=== PATIENT | female | born 1965 | race Caucasian/White ===

== ENCOUNTER 2016-10-19 17:04 | Emergency (ER) | payer MEDICARE ==
[~2016-10-19] VITALS: Ht 175.3 cm; Wt 67.3 kg
[2016-10-19] MEDS ORDERED: LEVOFLOXACIN 750 MG TABLET ONE (19:00)
[2016-10-19] MEDS ORDERED: LEVOFLOXACIN 750 MG TABLET PO ONE (19:00)
[2016-10-19] MEDS ORDERED: TRIAVIL PO (19:07)
[2016-10-19] MEDS ORDERED: [UNRECOGNIZED DRUG - OTHER] PO (19:07)
[2016-10-19 19:17] VITALS: BP 162/91
[2016-10-19] MEDS ORDERED: PLEASE ENTER ALLERGIES MC SCH ×2 (19:30)
== END 2016-10-19 19:20 | disposition home or self-care (01) ==
LOC: ED 19:00
DX: J15.9 Unspecified bacterial pneumonia (principal); J44.0 Chronic obstructive pulmonary disease with (acute) lower respiratory infection
CPT/HCPCS: 71020; 99284

== ENCOUNTER 2018-10-20 14:24 | Emergency (ER) | payer MEDICAID, MEDICARE ==
[~2018-10-20] VITALS: Ht 170.2 cm; Wt 68.4 kg
[~2018-10-20 14:24] MED LIST: TRIAVIL PO; [UNRECOGNIZED DRUG - OTHER] PO
[2018-10-20 14:27] VITALS: BP 110/74
--- NOTE | 2018-10-20 14:42 | NUR ---
PT STATES "I AM LEAKING SPINAL FLUID OUT OF MY MOUTH" PT WANTS [facility] W EMERGENCY PLACEMENT W HOUSING AND STATE SHE IS NEED OF HELP. MD AT BEDSIDE.
[2018-10-20] MEDS ORDERED: SERT50TA PO (14:49)
[2018-10-20] MEDS ORDERED: PERP2TAB PO (14:49)
--- NOTE | 2018-10-20 15:27 | NUR ---
PATIENT SEEN BY PATCHING MACHINE OPERATOR. PT READY FOR DC Patient given discharge instructions and they have confirmed that they understand the instructions. Patient ambulatory with steady gait.
== END 2018-10-20 15:43 | disposition home or self-care (01) ==
LOC: ED 15:28
DX: R68.89 Other general symptoms and signs (principal); J44.9 Chronic obstructive pulmonary disease, unspecified
CPT/HCPCS: 99283